=== PATIENT | female | born 1990 | race Caucasian/White ===

== ENCOUNTER 2022-05-10 12:55 | Emergency (ER) | payer BC ==
[~2022-05-10] VITALS: Ht 154.9 cm; Wt 45.4 kg
[2022-05-10 14:00] LABS: HEMATOCRIT 40.8 % (31.2-41.9); MEAN CORPUSCULAR HEMOGLOBIN 30.1 uug (24.7-32.8); MEAN CORPUSCULAR VOLUME 91.7 fL (75.5-95.3); PLATELET COUNT (AUTO) 114 K/uL (179-408)
[2022-05-10 14:13] LABS: CREATININE 0.8 mg/dL (0.6-1.3); POTASSIUM 4.1 mmol/L (3.5-5.1)
--- NOTE | 2022-05-10 14:40 | NUR ---
32 years old female reports 5 weeks and noted vaginal bleeding with mild lower cramps today denies nausea vomiting fatigue.
[2022-05-10 15:15] LABS: *BILIRUBIN,URIN NEGATIVE (NEGATIVE); *BLOOD, URINE 3+ (NEGATIVE); *CLARITY,URINE CLEAR (CLEAR); *COLOR,URINE YELLOW (YELLOW); *KETONES,URINE NEGATIVE (NEGATIVE); *UROBILINOGEN,URINE 0.2 E.U./dl (NORMAL); LEUKOCYTE ESTERASE ,URINE NEGATIVE (NEGATIVE); NITRITE, URINE NEGATIVE (NEGATIVE); UGLUCOSE NEGATIVE (NEGATIVE)
--- NOTE | 2022-05-10 15:52 | NUR ---
patient condition stable d/c home with instructions after care reviewed understood left er ambulatory no pain, nom active vaginal bleeding.
[2022-05-10 15:54] VITALS: BP 110/60
[2022-05-10 16:28] LABS: WBC,URINE NONE SEEN /HPF (0-3)
[2022-05-10 16:30] LABS: BACTERIA,URINE FEW /HPF (NONE SEEN); SQUAMOUS EPITHELIAL CELL,UR FEW /HPF (NONE SEEN)
== END 2022-05-10 16:08 | disposition home or self-care (01) ==
LOC: ER 12:55
DX: O03.9 Complete or unspecified spontaneous abortion without complication (principal); R10.2 Pelvic and perineal pain; Z3A.00 Weeks of gestation of pregnancy not specified
CPT/HCPCS: 36415; 76856; 85025; 86850; 86900; 86901; A4663